=== PATIENT | female | born 1970 | race Caucasian/White ===

== ENCOUNTER 2018-06-08 09:01 | Emergency (ER) | payer OTHER ==
[~2018-06-08] VITALS: Wt 83.9 kg
[~2018-06-08 09:01] MED LIST: BACTRIM DS 8001 TA1 PO; HYDROCODONE BIT1 T11 PO
[2018-06-08 09:33] LABS: BILIRUBIN NEGATIVE (NEGATIVE); BLOOD TRACE-INTACT (NEGATIVE); CLARITY CLEAR (CLEAR); COLOR YELLOW (YELLOW); GLUCOSE NEGATIVE (NEGATIVE); KETONE NEGATIVE (NEGATIVE); LEUKO ESTERASE NEGATIVE (NEGATIVE); NITRITE NEGATIVE (NEGATIVE); PH 7.5 (5.0-9.0); UROBILINOGEN 0.2 E.U./dl (0.2-1.0)
[2018-06-08 09:49] LABS: BACTERIA 1+; MUCOUS TRACE; RBC 16-20 rbc/hpf (0-2)
[2018-06-08] MEDS ORDERED: PYRIDIUM200 M1 PO (09:57)
[2018-06-08] MEDS ORDERED: SEPTDS PO (09:57)
== END 2018-06-08 10:00 | disposition home or self-care (01) ==
LOC: ED
PROVIDERS: Physician Assistant
DX: R30.0 Dysuria (principal); R03.0 Elevated blood-pressure reading, without diagnosis of hypertension; M54.5 Low back pain

== ENCOUNTER → 2018-06-21 | Outpatient (CLI) | payer OTHER ==
[~2018-06-21] MED LIST changes: +PYRIDIUM200 M1 PO; +SEPTDS PO
== END | disposition home or self-care (01) ==
LOC: RESCLI 10:17
DX: Z12.31 Encounter for screening mammogram for malignant neoplasm of breast (principal); I10 Essential (primary) hypertension; E66.9 Obesity, unspecified; F17.200 Nicotine dependence, unspecified, uncomplicated